=== PATIENT | male | born 1935 | race African-American/Black ===

== ENCOUNTER → 2017-07-02 | Outpatient (CLI) | payer MEDICARE ==
--- NOTE | 2017-07-02 19:29 | ECHOF ---
Referral Reason:Dyspnea R06.02 MEASUREMENTS -------- HEIGHT: 162.6 cm WEIGHT: 71.7 kg BP: RVIDd: 2.2 cm (< 3.3) IVSd: 1.3 cm (0.6 - 1.1) LVIDd: 3.6 cm (3.9 - 5.3) LVPWd: 1.1 cm (0.6 - 1.1) IVSs: 1.4 cm LVIDs: 2.9 cm LVPWs: 1.3 cm LAESV Index (A-L): 18.18 ml/m Ao Diam: 2.5 cm (2.0 - 3.7) AV Cusp: 0.8 cm (1.5 - 2.6) LA Diam: 3.4 cm (2.7 - 3.8) MV EXCURSION: 15.293 mm (> 18.000) MV EF SLOPE: 42 mm/s (70 - 150) EPSS: 0.4 cm MV E Fabrizio: 0.45 m/s MV DecT: 259 ms MV A Fabrizio: 0.72 m/s MV E/A Ratio: 0.62 RAP: 5.00 mmHg RVSP: 36.33 mmHg FINDINGS -------- Sinus rhythm. This was a technically adequate study. There is mild concentric left ventricular hypertrophy. Overall left ventricular systolic function is normal with, an EF between 55 - 60 %. The right ventricle is normal in size. Normal LA size by volume 22+/-6 ml/m2. The right atrial size is normal. The aortic valve is trileaflet, and appears structurally normal. No aortic stenosis or regurgitation. Mild mitral regurgitation is present. Mild tricuspid regurgitation present. There is no evidence of pulmonary hypertension. The right ventricular systolic pressure, as measured by Doppler, is 36.33mmHg. There is no pulmonic regurgitation present. The aortic root size is normal. There is no pericardial effusion. CONCLUSIONS -------- 1. There is mild concentric left ventricular hypertrophy. 2. Overall left ventricular systolic function is normal with, an EF between 55 - 60 %. 3. Mild mitral regurgitation is present. 4. Mild tricuspid regurgitation present. 5. There is no evidence of pulmonary hypertension. 6. The right ventricular systolic pressure, as measured by Doppler, is 36.33mmHg. DRAG SEINER: Kassidy Ortega RDCS
== END | disposition home or self-care (01) ==
LOC: RADNMMAIN 08:20
PROVIDERS: ATTEND Internal Medicine
DX: I08.1 Rheumatic disorders of both mitral and tricuspid valves (principal)
CPT/HCPCS: 93306

== ENCOUNTER → 2017-07-05 | Outpatient (CLI) | payer MEDICARE ==
[~2017-07-05] MED LIST: REGADENOSON 0.4 MG/5 ML SYRINGE IV ONE
--- NOTE | 2017-07-05 12:04 | EST ---
DATE OF SERVICE: 07/05/2017 TYPE OF REPORT: LEXISCAN CARDIOLITE STRESS TEST. INDICATION: Dyspnea. BASELINE HEART RATE: 50 BASELINE BLOOD PRESSURE: 137/61 MAXIMUM HEART RATE: 78 MAXIMUM BLOOD PRESSURE: 116/73 85% MPHR: 116 100% MPHR: 137 METS: - MAXIMUM STAGE REACHED: - TOTAL EXERCISE TIME: - Baseline EKG revealed normal sinus rhythm with minor nonspecific ST abnormality and baseline artifact. With Lexiscan administration, heart range changed from 50 to 78 beats per minute, blood pressure changed from 137/61 to 116/73. EKG revealed minor nonspecific ST-T changes without any significant symptoms. By EKG criteria, technically this is an inconclusive Lexiscan stress test because of minor resting EKG changes. The nuclear scan results which are more pertinent will be reported by the radiologist. BLAKE
--- NOTE | 2017-07-05 12:18 | NM ---
EXAMINATION TYPE: NM stress lexiscan cardiolite DATE OF EXAM: 07/05/2017 COMPARISON: NONE HISTORY: Dyspnea, R06.02 TECHNIQUE: After the intravenous administration of 10.4 mCi Tc 99m Sestamibi - Cardiolite resting SP ECT images acquired 45 minutes post injection. The patient received 0.4mg Lexiscan, 26.6 mCi Tc 99m Sestamibi - Stress images obtained [address] injection FINDINGS: Review of stress and rest SPECT images demonstrates no distinct perfusion abnormality. Gated analysi s shows normal wall motion with an estimated left ventricular ejection fraction of 58 %. IMPRESSION: No scintigraphic evidence for reversible ischemia.
== END | disposition home or self-care (01) ==
LOC: RADNMMAIN 08:00
PROVIDERS: ATTEND Internal Medicine
DX: R94.31 Abnormal electrocardiogram [ECG] [EKG] (principal); R06.00 Dyspnea, unspecified
CPT/HCPCS: 93017; 78452; A9500; J2785

== ENCOUNTER → 2017-07-20 | Outpatient (CLI) | payer MEDICARE ==
--- NOTE | 2017-07-20 11:11 | FL ---
EXAMINATION TYPE: FL UGI DATE OF EXAM ORDERED: 07/20/2017 11:02 AM HISTORY: Early satiety. COMPARISON: None. FINDINGS: The esophagus distended well with air and barium without evidence of obstructing or constr icting disease. There is no significant reflux. There is no evidence of hiatal hernia Stomach contour is normal. There is no fixed filling defect or chayo ulceration. The duodenal cap and sweep are normal, IMPRESSION: NORMAL AIR-CONTRAST UPPER GI SERIES.
== END ==
LOC: RADFLMAIN 10:17
PROVIDERS: ATTEND Internal Medicine
DX: R68.81 Early satiety (principal)
CPT/HCPCS: 74240

== ENCOUNTER → 2017-08-06 | Outpatient (CLI) | payer MEDICARE ==
--- NOTE | 2017-08-06 10:09 | CT ---
EXAMINATION TYPE: CT abdomen w con DATE OF EXAM: 08/06/2017 COMPARISON: NONE HISTORY: disease of the pancreas CT DLP: 439.90 mGycm Automated exposure control for dose reduction was used. TECHNIQUE: Helical acquisition of images was performed from the lung bases through the iliac bifurca tion to include entire abdomen. CONTRAST: Performed without Oral Contrast and with IV Contrast, patient injected with 100 mL of Omnipaque 300. FINDINGS: LUNG BASES: Few linear pleural parenchymal scars are seen at the bilateral lung bases. LIVER/GB: Numerous cystic lesions are seen with the largest in segment IVb measuring 3.3 cm. PANCREAS: Pancreas has somewhat diffuse heterogenous enhancement, likely most notably within the dist al body without discrete or focal mass. No pancreatic ductal dilatation is seen. No pancreatic fat st randing is seen. SPLEEN: No significant abnormality is seen. ADRENALS: No significant abnormality is seen. KIDNEYS: No significant abnormality is seen. BOWEL: Numerous metallic foci are seen along the left hemicolon and splenic flexure that may relate to ingested substances versus prior trauma or surgical intervention. Small hiatal hernia is noted.. LYMPH NODES: No greater than 1 cm lymph nodes are appreciated. OSSEOUS STRUCTURES: No significant abnormality is seen. Mild degenerative changes of the visualized thoracolumbar spine are seen. FREE AIR: No free air is visualized. IMPRESSION: 1. NO DISCRETE PANCREATIC MASS OR DUCTAL DILATATION TO SUGGEST ADENOCARCINOMA. SOMEWHAT HETEROGENOUS ENHANCEMENT OF THE PANCREAS IS PRESENT WHICH MAY BE AN INCIDENTAL FINDING OR COULD RELATE TO MILD LOUIE CREATITIS ALTHOUGH NO PERIPANCREATIC FAT STRANDING IS SEEN. 2. NUMEROUS CYSTIC HEPATIC LESIONS, LIKELY BENIGN. 3. NO SUSPICIOUS ADENOPATHY WITHIN THE ABDOMEN ARE SUSPICIOUS OSSEOUS LESIONS. 4. SMALL HIATAL HERNIA.
== END | disposition home or self-care (01) ==
LOC: RADCTMAIN 07:18
PROVIDERS: ATTEND Internal Medicine
DX: K76.9 Liver disease, unspecified (principal); K44.9 Diaphragmatic hernia without obstruction or gangrene
CPT/HCPCS: 82565; 84520; 74160; 36415; Q9967

== ENCOUNTER → 2020-10-30 | Outpatient (CLI) | payer MEDICARE ==
[2020-10-30 18:21] LABS: Appearance,Urine Clear (Clear); Bilirubin,Urine Negative (Negative); Blood,Urine Negative (Negative); Color,Urine Yellow; Glucose,Urine (UA) Negative (Negative); Ketones,Urine Negative (Negative); Leukocyte Esterase,Urine Negative (Negative); Nitrite,Urine Negative (Negative); Protein,Urine Negative (Negative); Specific Gravity,Urine 1.022 (1.001-1.035); Urobilinogen,Urine <2.0 mg/dL (<2.0)
[2020-10-30 18:33] LABS: HCT 42.8 % (39.0-53.0); HGB 13.6 gm/dL (13.0-17.5); MCH 30.2 pg (25.0-35.0); MCHC 31.9 g/dL (31.0-37.0); MCV 94.7 fL (80.0-100.0); Mean Platelet Volume 9.5; Platelet Count 166 k/uL (150-450); RBC 4.52 m/uL (4.30-5.90); RDW 13.9 % (11.5-15.5); WBC 5.9 k/uL (3.8-10.6)
[2020-10-31 04:40] LABS: African American GFR (CKD) 62.6 (60.0-200.0); Albumin 3.9 g/dL (3.80-4.90); Calcium 8.7 mg/dL (8.7-10.3); Chol/HDL Ratio 3.57; LDL Cholesterol,Calculated 117.2 mg/dL (0.0-131.0); Magnesium 1.8 mg/dL (1.5-2.4); VLDL Calculation 13.8 mg/dL (5.00-40.00)
[2020-10-31 04:48] LABS: T4, Free (Free Thyroxine) 1.2 ng/dL (0.80-1.80)
[2020-10-31 05:19] LABS: Hemoglobin A1C 6.5 % (4.0-6.0)
== END | disposition home or self-care (01) ==
LOC: LABWHC1 16:30
PROVIDERS: ATTEND Internal Medicine Endocrinology, Diabetes & Metabolism
DX: E11.21 Type 2 diabetes mellitus with diabetic nephropathy (principal); E11.65 Type 2 diabetes mellitus with hyperglycemia; E78.2 Mixed hyperlipidemia; E07.9 Disorder of thyroid, unspecified; E55.9 Vitamin D deficiency, unspecified
CPT/HCPCS: 36415; 80061; 81003; 82040; 82043; 82306; 82310; 82565; 82570; 83036; 83735; 84439; 84443; 84450; 84460; 84520; 85027

== ENCOUNTER → 2023-03-10 | Outpatient (CLI) | payer MEDICARE ==
--- NOTE | 2023-03-10 12:03 | US ---
EXAMINATION TYPE: US prostate transrectal DATE OF EXAM: 03/10/2023 COMPARISON: NONE CLINICAL INDICATION: Male, 87 years old with history of R97.2 ELEVATED PSA; frequent urination, only had 1 PSA level done at office This examination was performed using the transrectal probe. EXAM MEASUREMENTS: Gland Size: 5.9 x 5.5 x 4.3cm Volume: 73.4ml Predicted PSA: 8.8 Actual PSA (if available):11.5 Elderly male had difficulty with the pressure during exam, enlarged PZ is heterogeneous with no obvio us focal mass IMPRESSION: 1. No focal prostate lesion identified. 2. Enlarged heterogenous prostate gland consistent with BPH.
== END | disposition home or self-care (01) ==
LOC: RADUSWWP 08:55
PROVIDERS: ATTEND Family Medicine
DX: N40.0 Benign prostatic hyperplasia without lower urinary tract symptoms (principal); R97.20 Elevated prostate specific antigen [PSA]
CPT/HCPCS: 76872